=== PATIENT | female | born 1970 | race Caucasian/White ===

== ENCOUNTER → 2017-06-19 19:05 | Outpatient (CLI) | payer BC, SELFPAY ==
[2017-06-22 14:29] LABS: HPV Reflexed? NOT INDICATED
== END ==
PROVIDERS: Family Provider Family Medicine; PCP Family Medicine; Visit Provider Obstetrics & Gynecology
DX: Z12.4 Encounter for screening for malignant neoplasm of cervix (principal)
CPT/HCPCS: 88175; G0145

== ENCOUNTER → 2017-07-13 10:17 | Outpatient (CLI) | payer BC, SELFPAY ==
--- NOTE | 2017-07-13 10:20 | BI_ITS ---
MAMMOGRAPHY - BILATERAL SCREENING REASON FOR EXAM: Female, 47 years old. Routine annual screening examination. PERTINENT HISTORY: Sister with breast cancer. Grandmother with breast cancer. TECHNIQUE: Digital bilateral breast yehuda (3D mammographic acquisition) in the CC and MLO projections. 2-D mediolateral oblique (MLO) and craniocaudad (CC) views of both breasts were obtained. CAD: Full Field Digital Mammography with Computer Added Detection was performed. COMPARISON: Comparison is made with prior study dated March 11, 2014. FINDINGS: Breast Composition: The breasts are extremely dense, which lowers the sensitivity of mammography. There are no dominant masses or suspicious calcifications. No other significant abnormalities are identified. There has been no significant change since the prior study. BI/SCREENING MAMM (CAD), BILAT IMPRESSION: Stable bilateral screening mammogram. Yearly follow-up mammogram recommended. (A) ASSESSMENT CATEGORY: BIRADS Category 1: Negative. A letter regarding these results will be sent to the patient by the facility within 30 days. Approximately 10% of breast cancers are not detected by mammography. A normal mammogram should not delay biopsy of a clinically suspicious abnormality. [id number] Electronically Signed: Lester Reyna MD at 11:31 EDT Tel [phone], Service support ,
== END ==
PROVIDERS: Family Provider Family Medicine; PCP Family Medicine; Visit Provider Obstetrics & Gynecology
DX: Z12.31 Encounter for screening mammogram for malignant neoplasm of breast (principal)
CPT/HCPCS: 77063; 77067

== ENCOUNTER → 2019-03-04 11:28 | Outpatient (CLI) | payer BC, SELFPAY ==
--- NOTE | 2019-03-04 11:30 | BI_ITS ---
MAMMOGRAPHY - BILATERAL SCREENING REASON FOR EXAM: Female, 48 years old. Routine annual screening examination. PERTINENT HISTORY: Sister with breast cancer. Grandmother with breast cancer. TECHNIQUE: Digital bilateral breast bill (3D mammographic acquisition) in the CC and MLO projections. 2-D mediolateral oblique (MLO) and craniocaudad (CC) views of both breasts were obtained. CAD: Full Field Digital Mammography with Computer Added Detection was performed. COMPARISON: Comparison is made with prior study dated July 13, 2017 and March 11, 2014. FINDINGS: Breast Composition: The breasts are extremely dense, which lowers the sensitivity of mammography. There are no dominant masses or suspicious calcifications. No other significant abnormalities are identified. There has been no significant change since the prior study. BI/SCREEN MAMM (CAD) W/BILL BILAT IMPRESSION: Stable bilateral screening mammogram. Yearly follow-up mammogram recommended. (A) ASSESSMENT CATEGORY: BIRADS Category 1: Negative. A letter regarding these results will be sent to the patient by the facility within 30 days. Approximately 10% of breast cancers are not detected by mammography. A normal mammogram should not delay biopsy of a clinically suspicious abnormality. [id number] Electronically Signed: Lester Reyna, at 13:12 EST , Service support ,
== END ==
PROVIDERS: Family Provider Family Medicine; PCP Family Medicine; Referring Provider Obstetrics & Gynecology; Visit Provider Obstetrics & Gynecology
DX: Z12.31 Encounter for screening mammogram for malignant neoplasm of breast (principal)
CPT/HCPCS: 77063; 77067

== ENCOUNTER → 2023-03-01 | Outpatient (CLI) | payer BC, SELFPAY ==
--- NOTE | 2023-03-01 12:09 | BI_ITS ---
MAMMOGRAPHY - BILATERAL SCREENING REASON FOR EXAM: Female, 52 years old. Routine annual screening examination. PERTINENT HISTORY: Sister with breast cancer. Grandmother with breast cancer. TECHNIQUE: Digital bilateral breast bill (3D mammographic acquisition) in the CC and MLO projections. 2-D mediolateral oblique (MLO) and craniocaudad (CC) views of both breasts were obtained. CAD: Full Field Digital Mammography with Computer Added Detection was performed. COMPARISON: Comparison is made with prior study dated March 04, 2019 and July 13, 2017. FINDINGS: Breast Composition: The breasts are extremely dense, which lowers the sensitivity of mammography. There are no dominant masses or suspicious calcifications. No other significant abnormalities are identified. There has been no significant change since the prior study. BI/SCRN MAMM (CAD)W/BILL BILAT IMPRESSION: Stable bilateral screening mammogram. Yearly follow-up mammogram recommended. (A) ASSESSMENT CATEGORY: BIRADS Category 1: Negative. A letter regarding these results will be sent to the patient by the facility within 30 days. Approximately 10% of breast cancers are not detected by mammography. A normal mammogram should not delay biopsy of a clinically suspicious abnormality. [id number] Electronically Signed: Lester Reyna MD at 14:07 EST ,
--- OUTSIDE RECORDS SUMMARY | 2023-03-01 12:40 | XMS RPT_ITS | CCD ---
Author Name Unknown Address [address] [place] [address] Organization [facility] Care Team Providers Care Immigration Specialist Name Role Phone Hernandez Paez Primary Care Provider HERNANDEZ PAEZ Primary Care Unavailable SELMA SANTIAGO [facility] Medic[facility] Current Medications Medication Drug Class(es) Dates Sig (Normalized) Sig (Original) tropicamide 5 mg/ml ophthalmic solution (1 source) Anticholinergic Start: 03-15-2022 End: 03-16-2022 tropicamide 0.5 % 1 Drop (MYDRIACYL) Completed/Discontinued Medications Medication Drug Class(es) Dates Sig (Normalized) Sig (Original) cholecalciferol 0.125 mg oral tablet (1 source) Vitamin D take 1 tablet by mouth once daily cholecalciferol (VITAMIN D3) 5,000 unit tab Take 5,000 Units by mouth once daily. 0 Active Problems Problem Classification Problem Date Documented Da te Episodic/Chronic Blindness and vision defects (7 sources) Bilateral hyperopia of eyes; Translations: [Hypermetropia, bilateral] Onset: 11-23-2014 Episodic Other eye disorders (1 source) Vitreous floaters; Translations: [Other vitreous opacities, unspecified eye] Onset: 11-23-2014 11-23-2014 Chronic Encounters Encounter Date Encounter Type Care Provider Facility Start: 03-15-2022 End: 03-15-2022 ambulatory HERNANDEZ PAEZ Facility:[facility] Start: 03-15-2022 End: 03-15-2022 Patient encounter procedure Selma Santiago OD Work Phone: Optometry Plan of Treatment Date Care Activity Detail Author Start: 02-26-2022 DEPRESSION ASSESSMENT DEPRESSION ASS ESSMENT [facility] Start: 10-27-2021 Influenza vaccination INFLUENZA (#1) [facility] Start: 03-23-2021 COVID-19 VACCINE (4 - Booster for Moderna series) COVID-19 VACCINE (4 - Booster for Moderna series) [facility] Start: 2018 SHINGRIX VACCINE (1 of 2) SHINGRIX V ACCINE (1 of 2) [facility] Start: 2013 COLOGUARD (FIT-DNA) COLOGUARD (FIT-D NA) [facility] Start: 2013 Colonoscopy COLONOSCOPY [facility] Start: 2013 COLORECTAL CANCER SCREENING COLORECTAL CANCER SCREENING [facility] Start: [address] COLONOGRAPHY [facility] Start: 2013 DIABETES SCREEN DIABETES SCREEN [facility] Start: 2013 FECAL OCCULT BLOOD FECAL OCCULT BLOO D [facility] Start: 2013 LIPID SCREEN LIPID SCREEN [facility] Start: 2013 SIGMOIDOSCOPY SIGMOIDOSCOPY [facility] Start: 2008 Mammography MAMMOGRAM [facility] Start: 1998 HPV TESTING HPV TESTING [facility] Start: 1989 PAP TESTING PAP TESTING [facility] Start: 1987 Urine microalbumin profile DTAP,TDAP ,TD (1 - Tdap) [facility] Start: 1986 HEPATITIS C SCREENING HEPATITIS C SC REENING [facility] Start: 1986 HIV SCREENING HIV SCREENING [facility] Start: 1968 HEPATITIS B (1 of 3 - 3-dose series) HEPATITIS B (1 of 3 - 3-dose series) [facility] Payers Date Payer Category Payer Unknown [employer] [id number] 2013-Present [id number] [place] [address] Indemnity [id number] 2013 Unknown [id number] Social History Date Type Detail Facility Start: 11-23-2014 Tobacco smoking stat us MNIS Never smoked tobacco [facility] Start: 11-23-2014 Tobacco use and exposure Smokeless tobacco non-user [facility] Start: 03-15-2022 Alcohol intake Current drinke r of alcohol (finding) [facility] Start: 11-23-2014 Alcohol Comment occasionally [facility] Start: 1970 Sex Assigned At Not on file [facility] Progress note 03-15-2022 Note Date & Type Note Facility 03-15-2022 Note HNO ID: [id number] Author: Selma Santiago II, OD Service: ? 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 Small distance power demonstrated to patient. Patient happy with NVO glasses for now. Recheck in 1-2 years. I have confirmed and edited as necessary the relevant ophthalmic history, ROS, and the neuro exam findings as obtained by others. I have seen and examined Martha Pisano. I have discussed the case and the management of this patient's care with the Resident/Fellow, if applicable. I also have reviewed and agree with the assessment and plan as stated above and agree with all of its relevant components. Selma Santiago II, ROB [facility] Instructions 03-15-2022 Patient Instructions Note Date & Type Note Facility 03-15-2022 Instructions Selma Santiago II, OD - 03/15/2022 3:11 PM EST Assessment and Plan H52.03 Hyperopia of both eyes (primary encounter diagnosis) H52.223 Regular astigmatism of both eyes H52.4 Presbyopia Comment: Good ocular health. Small distance power demonstrated to patient. Patient happy with NVO glasses for now. Recheck in 1-2 years. I have confirmed and edited as necessary the relevant ophthalmic history, ROS, and the neuro exam findings as obtained by others. I have seen and examined Martha Pisano. I have discussed the case and the management of this patient's care with the Resident/Fellow, if applicable. I also have reviewed and agree with the assessment and plan as stated above and agree with all of its relevant components. Selma Santiago II, OD documented in this encounter [facility] History of Present illness Narrative 03-15-2022 Selma Santiago II, OD - 03/15/2022 3:10 PM EST Note Date & Type Note Facility 03-15-2022 History of Presen t illness Narrative Assessment and Plan H52.03 Hyperopia of both eyes (primary encounter diagnosis) H52.223 Regular astigmatism of both eyes H52.4 Presbyopia Comment: Good ocular health. Small distance power demonstrated to patient. Patient happy with NVO glasses for now. Recheck in 1-2 years. I have confirmed and edited as necessary the relevant ophthalmic history, ROS, and the neuro exam findings as obtained by others. I have seen and examined Martha Pisano. I have discussed the case and the management of this patient's care with the Resident/Fellow, if applicable. I also have reviewed and agree with the assessment and plan as stated above and agree with all of its relevant components. Selma Santiago II, OD documented in this encounter [facility] Evaluation note Note Date & Type Note Facility documented in this encounter [facility] Medications Administered Section Active Administered Medications - up to 3 most recent administrations Medication Order MAR Action Action Date Dose Rate Site tropicamide 0.5 % 1 Drop (MYDRIACYL) 1 Drop, BOTH EYES, DIRECTED, Starting on 03/15/22 at 1530, Until Mary 03/16/22 at 0329, Administer for dilation Given 03/15/2022 3:30 PM EST 1 Drop Summary Purpose Family History No Family History Records Found Advance Directives No Advanced Directives Records Found Additional Source Comments Source Comments (unrecognize d section and content) In the event this informatio n is protected by the Federal Confidentiality of Alcohol and Drug Abuse Patient Records regulations: The Federal rules restrict any use of the information to criminally investigate or prosecute any alcohol or drug abuse patient.[facility] Reason for Visit (unrecogniz ed section and content) Care Teams (unrecognized sec tion and content) INFORMATION SOURCE (unrecogn ized section and content) FOR RECORDS PERTAINING TO PATIENTS WHO ARE OR HAVE BEEN ENROLLED IN A CHEMICAL DEPENDENCY/SUBSTANCEABUSE PROGRAM, SOME INFORMATION MAY BE OMITTED. This clinical summary was aggregated from multiple sources. Caution should be exercised in using it in the provision of clinical care. This summary normalizes information from multiple sources, and as a consequence, information in this document may materially change the coding, format and clinical context of patient data. In addition, data may be omitted in some cases. CLINICAL DECISIONS SHOULD BE BASED ON THE PRIMARY CLINICAL RECORDS. [employer] provides no warranty or guarantee of the accuracy or completeness of information in this document.
== END | disposition home or self-care (01) ==
DX: Z12.31 Encounter for screening mammogram for malignant neoplasm of breast (principal); Z80.3 Family history of malignant neoplasm of breast
CPT/HCPCS: 77063; 77067